=== PATIENT | female | born 1985 | race Caucasian/White ===

== ENCOUNTER 2021-07-31 16:42 | Outpatient (CLI) | payer OTHER, SELFPAY ==
--- NOTE | 2021-07-31 | US_ITS ---
WS: [id number] ULTRASOUND THYROID TECHNIQUE: Ultrasound of the thyroid. CLINICAL INFORMATION: NONTOXIC MULTINODULAR GOITER COMPARISON: Ultrasound FINDINGS: Thyroid: Enlarged thyroid lobes bilaterally. Heterogeneous echotexture with increased vascularity in both thyroid lobes. Right thyroid lobe: 4.9 cm x 1.9 cm x 1.7 cm 9 x 5 x 9 mm solid nodule RIGHT thyroid lobe. Left thyroid lobe: 5.1 cm x 2.1 cm x 1.7 cm. Cystic nodule measuring 9 x 4 x 6 mm and solid nodule measuring 11 x 9 x 8 mm Isthmus: 4.7 mm. Cervical lymphadenopathy: None. US/US thyroid [id number] IMPRESSION: 1. Thyromegaly with heterogeneous thyroid echotexture and increased vascularit y bilaterally compatible with thyroiditis. This is similar to the prior examina tion 2019 2. Small cystic and solid thyroid nodules bilaterally are similar in appearanc e. No dominant nodules.
== END 2021-07-31 16:43 | disposition home or self-care (01) ==
LOC: RADOUTREAD 16:45
PROVIDERS: PCP Internal Medicine; Visit Provider Internal Medicine
DX: E04.2 Nontoxic multinodular goiter (principal)
CPT/HCPCS: 76536